=== PATIENT | male | born 1950 | race Caucasian/White ===

== ENCOUNTER 2017-01-17 16:46 | Emergency (ER) | payer BC ==
[2017-01-17] MEDS ORDERED: LIPITOR40 M1 PO (17:20)
[2017-01-17] MEDS ORDERED: AMLODIPINE BESY10 M1 PO (17:20)
[2017-01-17] MEDS ORDERED: VITAMIN D31000 UNI3 PO (17:21)
[2017-01-17] MEDS ORDERED: HYDROCHLOROTHIA25 M1 PO (17:21)
[2017-01-17] MEDS ORDERED: ZYLOPRIM100 M1 PO (17:21)
[2017-01-17] MEDS ORDERED: SYNTHROID137 MC1 PO (17:21)
[2017-01-17] MEDS ORDERED: ASPIRIN EC81 MG PO (17:22)
[2017-01-17] MEDS ORDERED: POTASSIUM99 M5 PO (17:22)
[2017-01-17] MEDS ORDERED: MOBIC7.5 M2 PO (17:23)
[2017-01-17] MEDS ORDERED: CENTRUM SILVER1 EAC3 PO (17:23)
== END 2017-01-17 18:20 ==
LOC: EDMED 16:46
PROC: 0HQEXZZ Repair Left Lower Arm Skin, External Approach (ICD-10-PCS; principal; 2017-01-17)
DX: S51.012A Laceration without foreign body of left elbow, initial encounter (principal); S00.81XA Abrasion of other part of head, initial encounter; Z88.0 Allergy status to penicillin; Z88.5 Allergy status to narcotic agent; Z87.442 Personal history of urinary calculi; W01.0XXA Fall on same level from slipping, tripping and stumbling without subsequent striking against object, initial encounter